=== PATIENT | male | born 1995 | race Two or more races ===

== ENCOUNTER 2024-04-17 06:19 | Emergency (ER) | payer OTHER ==
[2024-04-17] MEDS: ceFAZolin 1 GM Vial IM ONE (07:56)
[2024-04-17] MEDS: Lidocaine 1% 10 ML MDV INJECT ONE (07:56)
== END 2024-04-17 08:15 | disposition home or self-care (01) ==
LOC: JD.ED 06:19
DX: S62.522B Displaced fracture of distal phalanx of left thumb, initial encounter for open fracture (principal); Z79.899 Other long term (current) drug therapy; W23.1XXA Caught, crushed, jammed, or pinched between stationary objects, initial encounter
CPT/HCPCS: 12002; 73140; 96372; 99283; J0690; J3490